=== PATIENT | female | born 1995 | race American Indian/Alaskan Native ===

== ENCOUNTER 2021-07-01 13:32 | Outpatient (CLI) | payer OTHER ==
[2021-07-01 14:29] LABS: Alanine Aminotransferase 13 units/L (7-56); Albumin 4.4 g/dL (3.9-5); BUN/Creatinine Ratio 6; Blood Urea Nitrogen 6 mg/dL (7-17); Calcium 9.8 mg/dL (8.4-10.2); Hemolysis Index 8
[2021-07-01 16:49] LABS: Hemoglobin 13.5 gm/dl (10.1-14.3); Mean Corpuscular HGB Conc 33 % (30-34); Mean Corpuscular Volume 80 fl (79-97); Platelet Count 316 K/mm3 (140-440); Red Blood Count 5.14 M/mm3 (3.65-5.03); Red Cell Distribution Width 14.1 % (13.2-15.2)
[2021-07-01 16:50] LABS: Eosinophils % (Auto) 7.5 % (0.0-4.3); Lymphocytes % (Auto) 50.7 % (13.4-35.0); Monocytes % (Auto) 5.7 % (0.0-7.3)
[2021-07-01 16:51] LABS: Basophils % (Auto) 0.9 % (0.0-1.8); Eosinophils # (Auto) 0.4 K/mm3 (0.0-0.4); Erythrocyte Sedimentation Rate 14 mm/Hr (0-20); Lymphocytes # (Auto) 2.6 K/mm3 (1.2-5.4); Monocytes # (Auto) 0.3 K/mm3 (0.0-0.8)
== END 2021-07-01 13:33 | disposition home or self-care (01) ==
LOC: LAB 13:32
PROVIDERS: ATTEND Specialist
DX: G35 Multiple sclerosis (principal)
CPT/HCPCS: 36415; 80053; 85025; 85652; 86592